=== PATIENT | female | born 1980 | race Caucasian/White ===

== ENCOUNTER 2021-05-03 14:35 | Day surgery (SDC) | payer OTHER ==
[2021-05-03] MEDS ORDERED: Lactated Ringers 1,000 ML IV ONE (16:05)
[2021-05-03] MEDS ORDERED: DIPRIVAN 200 MG/20 ML IV ONE (16:23)
--- NOTE | 2021-05-03 16:55 | XRAY ---
Indication: Bilateral L4-S1 MBB. Intraoperative fluoroscopy provided for 7 seconds. Single digital spot image submitted for interpretation demonstrate posterior needle tips projecting over the expected left and right L4-S1 nerve roots. Correlate with intraoperative findings/report.
--- NOTE | 2021-05-03 17:12 | XRAY ---
7 seconds of fluoroscopy was used in surgery for a bilateral L4-L5, L5-S1 MBB.
== END 2021-05-03 16:46 | disposition home or self-care (01) ==
LOC: SDC-PAIN 14:35
PROVIDERS: ATTEND Psychiatry & Neurology Pain Medicine
DX: M47.816 Spondylosis without myelopathy or radiculopathy, lumbar region (principal); F41.9 Anxiety disorder, unspecified; F32.9 Major depressive disorder, single episode, unspecified; D64.9 Anemia, unspecified; Z79.899 Other long term (current) drug therapy
CPT/HCPCS: 64493; 64494; 72020; 77002; 84703; J2704

== ENCOUNTER 2025-01-28 16:12 | Day surgery (SDC) | payer BC ==
[2025-01-28] MEDS ORDERED: LIDOCAINE HCL 1% 50 MG/5 ML VL IJ ONE (16:13)
[2025-01-28] MEDS ORDERED: BUPIVACAINE 0.5% VIAL IJ ONE (16:13)
[2025-01-28] MEDS ORDERED: methylPREDNISolone acetate IM ONE (16:13)
--- NOTE | 2025-01-28 20:42 | XRAY ---
Indication: Left shoulder and subacromial bursa injection. Intraoperative fluoroscopy provided for 21 seconds. 2 digital spot image submitted for interpretation demonstrates needle tip projecting over left glenohumeral joint superiorly. Second needle tip subacromial. Small amount of contrast injected for needle tip placement. Correlate with intraoperative findings/report.
--- NOTE | 2025-01-28 20:45 | XRAY ---
21 seconds of fluoroscopy were used in surgery for a left intra-articular shoulder injection and a left subacromial bursa injection.
== END 2025-01-28 18:15 | disposition home or self-care (01) ==
LOC: SDC-PAIN 16:12
PROVIDERS: ATTEND Psychiatry & Neurology Pain Medicine
DX: M19.012 Primary osteoarthritis, left shoulder (principal)
CPT/HCPCS: 20610; 73030; 77002; J1010; Q9966